=== PATIENT | male | born 1950 ===

== ENCOUNTER 2022-06-23 09:43 | Outpatient (CLI) | payer OTHER | END 2022-06-23 09:52 | disposition home or self-care (01) | LOC: TOM 09:43 | PROVIDERS: ATTEND Colon & Rectal Surgery | DX: K62.4 Stenosis of anus and rectum (principal); K57.32 Diverticulitis of large intestine without perforation or abscess without bleeding ==

== ENCOUNTER 2024-11-02 09:53 | Inpatient (IN) | payer OTHER ==
[~2024-11-02] VITALS: Ht 167.6 cm; Wt 78.5 kg
[2024-11-02] MEDS ORDERED: HUMALOG100 UNIT/2 (10:43)
[2024-11-02] MEDS ORDERED: PROSCAR5 MG PO (10:44)
[2024-11-02] MEDS ORDERED: CRESTOR40 MG (10:44)
[2024-11-02] MEDS ORDERED: COZAAR50 MG PO (10:44)
[2024-11-02] MEDS ORDERED: LEVOTHYROXINE50 MC1 PO (10:45)
[2024-11-02] MEDS ORDERED: SYNJARDY XR 121 EACH PO (10:45)
[2024-11-02 10:57] VITALS: BP 111/69
[2024-11-08] MEDS ORDERED: CEFTRIAXONE SODIUM 2,000 MG VIAL ONE (11:04)
[2024-11-08] MEDS ORDERED: METRONIDAZOLE/SODIUM CHLORIDE 500 MG/100 ML PIGGYBACK IV ONE (11:05)
[2024-11-08] MEDS ORDERED: LIDOCAINE HCL 1%/EPINEPHRINE 20ML VIAL IJ ONE (13:24)
[2024-11-08] MEDS ORDERED: BUPIVACAINE HCL/Mpf 0.5% 10ML VIAL ONE (13:24)
[2024-11-08] MEDS ORDERED: ONDANSETRON HCL 2 MG/ML VIAL IV PRN (16:00)
[2024-11-08] MEDS ORDERED: OxyCODONE HCL 5 MG TABLET (ROXICODONE) PO PRN (16:00)
[2024-11-08] MEDS ORDERED: RINGERS SOLUTION,LACTATED 1,000 ML IV SCH (16:00)
[2024-11-08] MEDS ORDERED: ENALAPRILAT DIHYDRATE 1.25 MG/ML VIAL IV PRN (16:00)
[2024-11-08] MEDS ORDERED: MORPHINE SULFATE 4 MG/ML CARTRIDGE IV PRN (16:00)
[2024-11-08] MEDS ORDERED: DEXTROSE 50 % IN WATER 0.5 G/ML DISP.SYRIN IV PRN (16:00)
[2024-11-08] MEDS ORDERED: SUGAMMADEX SODIUM 200 MG/2 ML VIAL IV ONE (16:53)
[2024-11-08] MEDS ORDERED: POLYETHYLENE GLYCOL 3350 17 GM BLIST.PACK PO SCH (17:00)
[2024-11-08] MEDS ORDERED: CELECOXIB 200 MG CAPSULE PO SCH (17:00)
[2024-11-08] MEDS ORDERED: SIMETHICONE 125 MG CAPSULE PO SCH (17:00)
[2024-11-08] MEDS ORDERED: METOCLOPRAMIDE HCL 5 MG/ML VIAL IV SCH (17:00)
[2024-11-08] MEDS ORDERED: HYOSCYAMINE SULFATE 0.125 MG TAB.SUBL SL SCH (17:00)
[2024-11-08] MEDS ORDERED: GABAPENTIN 300 MG CAPSULE PO SCH (17:00)
[2024-11-08] MEDS ORDERED: ROSUVASTATIN CALCIUM 20 MG TABLET PO SCH (17:00)
[2024-11-08] MEDS ORDERED: MORPHINE SULFATE 2 MG/ML CARTRIDGE IV ONE (17:10)
[2024-11-08] MEDS ORDERED: MORPHINE SULFATE 4 MG/ML VIAL IV ONE (18:10)
[2024-11-08 18:12] LABS: BASO % 0.3 % (0.1-1.2); HEMATOCRIT 41.4 % (40.1-51.0); HEMOGLOBIN 13.6 g/dL (13.7-17.5); LYMPH # 0.86 (1.18-3.74); LYMPH % 6.7 % (19.3-53.1); MEAN CORPUSCULAR HEMOGLOBIN 29.6 pg (25.6-32.2); MONO # 0.69 (0.24-0.82); MONO % 5.4 % (4.7-12.5); NEUT # 11.25 (1.56-6.13); NEUT % 87.4 % (34.0-71.1); PLATELET COUNT 198 K/uL (163-369); RED BLOOD COUNT 4.59 M/uL (4.63-6.08); RED CELL DISTRIBUTION WIDTH 12.3 % (11.6-14.4)
[2024-11-08] MEDS ORDERED: ACETAMINOPHEN 500 MG GEL..CAP PO SCH (20:00)
[2024-11-08] MEDS ORDERED: FAMOTIDINE/PF 20 MG/2 ML VIAL IV PUSH SCH (21:00)
[2024-11-08 21:41] VITALS: BP 158/72; O2SAT 95
[2024-11-09 00:29] VITALS: BP 133/62; O2SAT 94
[2024-11-09] MEDS ORDERED: LEVOTHYROXINE SODIUM 50 MCG TABLET PO SCH (06:00)
[2024-11-09 07:32] LABS: BASO % 0.2 % (0.1-1.2); HEMATOCRIT 41.2 % (40.1-51.0); HEMOGLOBIN 13.5 g/dL (13.7-17.5); LYMPH # 0.59 (1.18-3.74); LYMPH % 5.5 % (19.3-53.1); MEAN CORPUSCULAR HEMOGLOBIN 29.5 pg (25.6-32.2); MONO # 0.63 (0.24-0.82); MONO % 5.9 % (4.7-12.5); NEUT # 9.39 (1.56-6.13); PLATELET COUNT 205 K/uL (163-369); RED BLOOD COUNT 4.57 M/uL (4.63-6.08); RED CELL DISTRIBUTION WIDTH 12.6 % (11.6-14.4)
[2024-11-09 08:00] VITALS: BP 118/53; O2SAT 94
[2024-11-09 08:15] LABS: ALBUMIN 3.4 gm/dL (3.4-5.0); CALCIUM 9.5 mg/dL (8.5-10.1); CREATININE SERUM 1.11 mg/dL (0.70-1.30); GFR 64.58; MAGNESIUM 1.9 mg/dL (1.8-2.4); PHOSPHOROUS 2.8 mg/dL (2.5-4.9); POTASSIUM 4.81 mEq/L (3.5-5.1)
[2024-11-09] MEDS ORDERED: FINASTERIDE 5 MG TABLET PO SCH (09:00)
[2024-11-09] MEDS ORDERED: LACTOBACILLUS ACIDOPHILUS 1 CAP CAP PO SCH (09:00)
[2024-11-09] MEDS ORDERED: LACTULOSE 20 G/30 ML BLIST.PACK PO SCH (09:00)
[2024-11-09] MEDS ORDERED: LOSARTAN POTASSIUM 50 MG TABLET PO SCH (09:00)
[2024-11-09] MEDS ORDERED: DEXTROSE 50 % IN WATER 0.5 G/ML DISP.SYRIN IV PRN (14:45)
[2024-11-09] MEDS ORDERED: INSULIN LISPRO 1,000 UNIT/10 ML UNITS SUBCUTANEO PRN (14:45)
[2024-11-09 16:37] VITALS: BP 102/62; O2SAT 96
[2024-11-09] MEDS ORDERED: ENOXAPARIN SODIUM 40 MG/0.4 ML SYRINGE SUBCUTANEO SCH (17:00)
[2024-11-10 00:33] VITALS: BP 98/55; O2SAT 97
[2024-11-10 08:00] VITALS: BP 128/74; O2SAT 95
[2024-11-10] MEDS ORDERED: ENOXAPARIN SODIUM 40 MG/0.4 ML SYRINGE SUBCUTANEO SCH (09:00)
[2024-11-10 16:05] VITALS: BP 132/81; O2SAT 98
[2024-11-11 00:49] VITALS: BP 113/61; O2SAT 96
[2024-11-11 08:00] VITALS: BP 150/78; O2SAT 97
[2024-11-11 16:00] VITALS: BP 119/74; O2SAT 95
[2024-11-12 00:26] VITALS: BP 122/73; O2SAT 98
[2024-11-12 09:23] VITALS: BP 128/75; O2SAT 96
[2024-11-12] MEDS ORDERED: TAMS0.4C PO (10:56)
== END 2024-11-12 13:24 | disposition home or self-care (01) | DRG 330 ==
LOC: SURG 11-08 07:00 → O/R 11-08 07:37 → SURG 11-08 11:45 → SURH 11-08 17:43
PROVIDERS: ADMIT Colon & Rectal Surgery; ATTEND Colon & Rectal Surgery
PROC: 0DBP4ZZ Excision of Rectum, Percutaneous Endoscopic Approach (ICD-10-PCS; 2024-11-08)
PROC: 0TQB4ZZ Repair Bladder, Percutaneous Endoscopic Approach (ICD-10-PCS; 2024-11-08)
PROC: 0WUF47Z Supplement Abdominal Wall with Autologous Tissue Substitute, Percutaneous Endoscopic Approach (ICD-10-PCS; 2024-11-08)
PROC: 8E0W4CZ Robotic Assisted Procedure of Trunk Region, Percutaneous Endoscopic Approach (ICD-10-PCS; 2024-11-08)
PROC: 0DJD8ZZ Inspection of Lower Intestinal Tract, Via Natural or Artificial Opening Endoscopic (ICD-10-PCS; 2024-11-08)
PROC: 0DTN4ZZ Resection of Sigmoid Colon, Percutaneous Endoscopic Approach (ICD-10-PCS; principal; 2024-11-08 07:00)
PROC: BW2GYZZ Computerized Tomography (CT Scan) of Pelvic Region using Other Contrast (ICD-10-PCS; 2024-11-11)
DX: K57.20 Diverticulitis of large intestine with perforation and abscess without bleeding (principal); N32.1 Vesicointestinal fistula; K62.4 Stenosis of anus and rectum; K66.0 Peritoneal adhesions (postprocedural) (postinfection); E11.65 Type 2 diabetes mellitus with hyperglycemia; I10 Essential (primary) hypertension; E03.9 Hypothyroidism, unspecified; Z79.4 Long term (current) use of insulin
CPT/HCPCS: 44207; 44213; 49905; 51865; 72192; S2900; 72191